=== PATIENT | female | born 2000 | race Caucasian/White ===

== ENCOUNTER 2019-08-23 19:44 | Emergency (ER) | payer SELFPAY ==
[~2019-08-23] VITALS: Ht 167 cm; Wt 144.0 kg
[2019-08-23] MEDS ORDERED: GUAI-365 PO (20:53)
[2019-08-23] MEDS ORDERED: PRD20T PO (20:53)
[2019-08-23] MEDS ORDERED: CEPH-507 PO (20:53)
[2019-08-23] MEDS ORDERED: BENZ-13 PO (20:53)
[2019-08-23 21:00] VITALS: BP 149/80
[2019-08-23] MEDS ORDERED: HYDROcodone/APAP 5 MG/325 MG (LORTAB) TAB PO ONE (21:00)
--- NOTE | 2019-08-23 21:02 | ED Cough/URI ---
General Chief Complaint: Cough/Cold/Flu Symptoms Stated Complaint: COUGH, FEVER, CHEST PAIN Nursing Triage Note: PT COMPLAINING OF A COUGH AND NASAL CONGESTION FOR A FEW DAYS Sepsis Screen: No Definite Risk Source: patient History of Present Illness Date Seen by Provider: Aug 23, 2019 Time Seen by Provider: 22:30 Initial Comments Patient is a 19-year-old female with history of asthma in childhood presents nasal congestion, fever, productive cough with the past several days. Sputum was initially clear and is now yellow tinged. Patient reports difficulty sleeping at night due to postnasal drip and persistent coughing. She is taking Benadryl at night without relief. Reports subjective fever. No chills nausea vomiting or sweats. Denies wheezing. Patient is a nonsmoker. Last menstrual period was 2 weeks ago. Timing/Duration: week, getting worse Severity/Quality: moderate, productive cough, sputum Prior Episodes/Possible Cause: frequent episodes Modifying Factors: Improves With Coughing, Improves With Lying Down Associated Symptoms: chest pain/soreness, nasal congestion, nasal drainage, s ore throat Allergies and Home Medications Allergies Coded Allergies: No Known Drug Allergies (Unverified , 08/23/19) Home Medications Benzonatate 100 Mg Capsule, 200 MG PO q8 Prescribed by: ALAN RENDON on 08/23/192052 Cephalexin 500 Mg Capsule, 500 MG PO DAILY Prescribed by: ALAN RENDON on 08/23/192052 Guaifenesin/Pseudoephedrne HCl 1 Each Tab.er.12h, 1 EACH PO Q12H Prescribed by: ALAN RENDON on 08/23/192052 Prednisone 20 Mg Tab, 40 MG PO DAILY Prescribed by: ALAN RENDON on 08/23/192052 Patient Home Medication List Home Medication List Reviewed: Yes Review of Systems Review of Systems Constitutional: see HPI EENTM: see HPI Respiratory: see HPI Cardiovascular: see HPI Gastrointestinal: no symptoms reported Genitourinary: no symptoms reported Musculoskeletal: no symptoms reported Skin: no symptoms reported Psychiatric/Neurological: No Symptoms Reported Hematologic/Lymphatic: No Symptoms Reported Immunological/Allergic: no symptoms reported All Other Systems Reviewed Negative Unless Noted: Yes Past Aklfwcp-Htrdrk-Uuojfe Hx Past Med/Social Hx: Reviewed Nursing Past Med/Soc Hx Patient Social History Alcohol Use: Denies Use Recreational Drug Use: No Smoking Status: Never a Smoker 2nd Hand Smoke Exposure: No Recent Foreign Travel: No Contact w/Someone Who Travel: No Recent Infectious Disease Expo: No Recent Hopitalizations: No Physical Abuse: No Sexual Abuse: No Mistreated: No Fear: No Past Medical History Surgeries: No Respiratory: No Cardiac: No Neurological: No Genitourinary: No Gastrointestinal: No Musculoskeletal: No Endocrine: No HEENT: No Cancer: No Psychosocial: No Integumentary: No Blood Disorders: No Physical Exam Vital Signs - First Documented 08/23/19 19:58 Temp 36.7 Pulse 106 Resp 20 B/P (MAP) 157/81 (106) Pulse Ox 97 O2 Delivery Room Air Capillary Refill : Less Than 3 Seconds Height: '" Weight: lbs. oz. kg; 51.00 BMI Method: General Appearance: WD/WN, no apparent distress Eyes: Bilateral Eye Normal Inspection, Bilateral Eye PERRL, Bilateral Eye EOMI HEENT: other Neck: supple, normal inspection Respiratory: lungs clear, normal breath sounds, no respiratory distress, no accessory muscle use, other (chest wall) Cardiovascular: normal peripheral pulses, regular rate, rhythm Neurologic/Psychiatric: no motor/sensory deficits, alert, normal mood/affect, oriented x 3 Focused Exam Sepsis Stage: Ruled Out Progress/Results/Core Measures Suspected Sepsis Recent Fever Within 48 Hours: No Infection Criteria Present: None New/Unexplained Altered Menta: No Sepsis Screen: No Definite Risk SIRS Temperature: Pulse: 106 Respiratory Rate: 20 Blood Pressure 157 /81 Mean: 106 Results/Orders My Orders Orders - ALAN RENDON DO Hydrocodone/Apap 5/325 Tablet (Lortab 5 (08/23/19 21:00) Vital Signs/I&O 08/23/19 19:58 Temp 36.7 Pulse 106 Resp 20 B/P (MAP) 157/81 (106) Pulse Ox 97 O2 Delivery Room Air Capillary Refill : Less Than 3 Seconds Blood Pressure Mean: 106 Departure Communication (Admissions) Rhinitis/bronchitis without respiratory compromise. Recommendations are for supportive care with PCP follow-up as needed. Impression Primary Impression: Bronchitis Disposition: 01 HOME, SELF-CARE Condition: Improved Departure-Patient Inst. Referrals: NO,LOCAL PHYSICIAN (PCP) Primary Care Physician Patient Instructions: Acute Bronchitis, Adult (DC) Scripts Prednisone (Prednisone) 20 Mg Tab 40 MG PO DAILY, #6 TAB 0 Refills Prov: ALAN RENDON DO 08/23/19 Guaifenesin/Pseudoephedrne HCl (Mucinex D ER 1,200-120 mg Tab) 1 Each Tab.er.12h 1 EACH PO Q12H, #20 TAB Prov: ALAN RENDON DO 08/23/19 Cephalexin (Keflex) 500 Mg Capsule 500 MG PO DAILY, #7 CAP Prov: ALAN RENDON DO 08/23/19 Benzonatate (Tessalon Perle) 100 Mg Capsule 200 MG PO q8, #30 CAP Prov: ALAN RENDON DO 08/23/19 Work/School Note: Work Release Form Date Seen in the Emergency Department: Aug 23, 2019 Return to Work: Aug 27, 2019 ALAN RENDON DO Aug 23, 2019 21:02
== END 2019-08-23 21:00 | disposition home or self-care (01) ==
LOC: ER FS 19:46
DX: J40 Bronchitis, not specified as acute or chronic (principal); Z87.09 Personal history of other diseases of the respiratory system
CPT/HCPCS: 99283

== ENCOUNTER 2021-02-09 11:23 | Emergency (ER) | payer SELFPAY ==
[~2021-02-09] VITALS: Ht 165 cm; Wt 113.3 kg
[~2021-02-09 11:23] MED LIST: BENZ-13 PO; CEPH-507 PO; GUAI-365 PO; PRD20T PO
--- NOTE | 2021-02-09 12:34 | ED Cough/URI ---
General Chief Complaint: Cough/Cold/Flu Symptoms Stated Complaint: N/V,FEVER, BODY ACHES, SORE THROAT Nursing Triage Note: pt reports cough, sore throat, vomiting, ear ache, and body aches x5 days. pt was seen at [facility] on tuesday was was tested for covid, strep, mono, flu, uti, pna, and kidney stones with all test being negative. pt was told she had elevated wbc count. pts throat is so sore now she is unable to drink any fluids. Sepsis Screen: No Definite Risk Source: patient Exam Limitations: no limitations History of Present Illness Date Seen by Provider: Feb 09, 2021 Time Seen by Provider: 12:13 Initial Comments Here with persistent sore throat, earaches and body aches over the last 5 days. Was seen at [facility] in [place] and had all sorts of testing including Covid testing which was -2 days ago. Patient states that she has taken her antibiotics as directed except she is only taking them once a day because she did not realize there is post to be taken twice a day. States this morning she woke up with a dry mouth and feels ear fullness and that her throat is hurting worse. She is obviously suffering from nasal congestion. Timing/Duration: week, getting worse Severity/Quality: mild, dry cough Prior Episodes/Possible Cause: occasional episodes Associated Symptoms: cough, fever/chills, nasal congestion, nasal drainage, sore throat Allergies and Home Medications Allergies Coded Allergies: No Known Drug Allergies (Unverified , 08/23/19) Home Medications Benzonatate 100 Mg Capsule, 200 MG PO q8 Prescribed by: ALAN RENDON on 08/23/192052 Cephalexin 500 Mg Capsule, 500 MG PO DAILY Prescribed by: ALAN RENDON on 08/23/192052 Guaifenesin/Pseudoephedrne HCl 1 Each Tab.er.12h, 1 EACH PO Q12H Prescribed by: ALAN RENDON on 08/23/192052 Prednisone 20 Mg Tab, 40 MG PO DAILY Prescribed by: ALAN RENDON on 08/23/192052 Patient Home Medication List Home Medication List Reviewed: Yes Review of Systems Review of Systems Constitutional: see HPI; No chills, No fever EENTM: see HPI Respiratory: cough; No short of breath Cardiovascular: no symptoms reported Gastrointestinal: see HPI; No abdominal pain, No vomiting Genitourinary: no symptoms reported Musculoskeletal: muscle pain; No muscle weakness Past Lojukvb-Bzbufl-Fukosu Hx Past Med/Social Hx: Reviewed Nursing Past Med/Soc Hx Patient Social History Alcohol Use: Denies Use Smoking Status: Never a Smoker 2nd Hand Smoke Exposure: No Recent Infectious Disease Expo: No Recent Hopitalizations: No Seasonal Allergies Seasonal Allergies: No Past Medical History Surgeries: Yes Tonsillectomy Respiratory: No Cardiac: No Neurological: No Genitourinary: No Gastrointestinal: No Musculoskeletal: No Endocrine: No HEENT: No Cancer: No Psychosocial: No Integumentary: No Blood Disorders: No Family Medical History Reviewed Nursing Family Hx No Pertinent Family Hx Physical Exam Vital Signs - First Documented Capillary Refill : Less Than 3 Seconds Height: '" Weight: lbs. oz. kg; 41.00 BMI Method: General Appearance: WD/WN, no apparent distress, obese HEENT: TM abnormal (R) (Bulging but otherwise clear), TM abnormal (L) (Bulging but otherwise clear), pharyngeal erythema (Mild to moderate), other (Has had previous tonsillectomy and there are no pustules or swelling area noted.) Neck: full range of motion, supple; No lymphadenopathy (R), No lymphadenopathy (L) Respiratory: lungs clear, normal breath sounds Cardiovascular: regular rate, rhythm, no murmur Neurologic/Psychiatric: alert, oriented x 3 Skin: normal color, warm/dry Progress/Results/Core Measures Suspected Sepsis Recent Fever Within 48 Hours: No Infection Criteria Present: None New/Unexplained Altered Menta: No Sepsis Screen: No Definite Risk SIRS Temperature: Pulse: 99 Respiratory Rate: 16 Blood Pressure 134 /83 Mean: 100 Results/Orders My Orders Orders - DEREK HALL MD Dexamethasone Injection (Decadron Inje (02/09/21 12:30) Vital Signs/I&O 02/09/21 02/09/21 11:45 11:45 Temp 36.4 Pulse 99 Resp 16 B/P (MAP) 134/83 (100) Pulse Ox 97 O2 Delivery Room Air Room Air Capillary Refill : Less Than 3 Seconds Blood Pressure Mean: 100 Progress Note : Progress Note Seen and evaluated. We will give Decadron 10 mg IM now. I did discuss with the patient the need to take the amoxicillin 875 twice daily as prescribed. We will initiate outpatient Afrin nasal spray and continue [id number] therapy otherwise. Patient was in agreement with this and appreciative of the care and plan. Discharged home with return precautions. Patient verbalized understanding of instructions and agreement with plan. Departure Impression Primary Impression: Upper respiratory infection Qualified Codes: J06.9 - Acute upper respiratory infection, unspecified Disposition: HOME, SELF-CARE Condition: Stable Departure-Patient Inst. Decision time for Depature: 12:33 Referrals: NO,LOCAL PHYSICIAN (PCP/Family) Primary Care Physician Patient Instructions: Bacterial Upper Respiratory Infection, Adult (DC), Viral Upper Respiratory Infection, Adult (DC) Add. Discharge Instructions: All discharge instructions reviewed with patient and/or family. Voiced understanding. Take antibiotics as directed by taking 1 tablet twice daily until complete. You may take Tylenol/acetaminophen 1000 mg every 8 hours as needed for fever or pain. You may take ibuprofen 600 mg every 8 hours as needed for fever or pain. You may use Afrin nasal spray or the generic, 12 hour relief, 2 sprays to each nostril twice daily for 3 days only and then stop. Do not use more than 3 days. Follow-up with your DrFranky in a few days for recheck. Drink plenty of fluids. Return for worse pain, fever, vomiting, weakness, breathing problems or other concerns as needed. DEREK HALL MD Feb 09, 2021 12:34
[2021-02-09 12:54] VITALS: BP 134/83
== END 2021-02-09 12:53 | disposition home or self-care (01) ==
LOC: EDUNIT# 11:23 → ER 11:27
DX: J06.9 Acute upper respiratory infection, unspecified (principal); I10 Essential (primary) hypertension; E66.9 Obesity, unspecified; Z68.41 Body mass index [BMI] 40.0-44.9, adult; Z79.52 Long term (current) use of systemic steroids
CPT/HCPCS: 99284